=== PATIENT | male | born 1995 | race Caucasian/White ===

== ENCOUNTER 2025-01-04 13:39 | Emergency (ER) | payer MEDICAID ==
[~2025-01-04] VITALS: Ht 175.3 cm; Wt 90.7 kg
[2025-01-04 13:43] VITALS: O2SAT 96
[2025-01-04 13:44] VITALS: BP 136/94; PULSE 110; RESP 16; TEMP 37.1; O2SAT 100
== END 2025-01-04 15:42 | disposition home or self-care (01) ==
LOC: ER 13:39
DX: S01.91XD Laceration without foreign body of unspecified part of head, subsequent encounter (principal); Z48.02 Encounter for removal of sutures; Z98.890 Other specified postprocedural states; X58.XXXD Exposure to other specified factors, subsequent encounter
CPT/HCPCS: 99281; 99282